=== PATIENT | male | born 1945 | race Asian ===

== ENCOUNTER 2020-05-25 15:11 | Inpatient (IN) | payer OTHER ==
[~2020-05-25] VITALS: Ht 162.6 cm; Wt 49.6 kg
[2020-05-25 15:15] VITALS: Ht 162.6 cm; Wt 49.6 kg
[2020-05-25 16:20] LABS: BASOPHIL % 0.3 % (0-2); PLATELET COUNT 265 x10^3mcL (130-400); RED CELL DISTRIBUTION WIDTH 13.8 % (11.5-14.5)
[2020-05-25 16:25] LABS: CHLORIDE SERUM 92 mmol/L (98-107); CREATININE SERUM 1.2 mg/dL (0.7-1.3); GLUCOSE SERUM 141 mg/dL (74-106); POTASSIUM SERUM 3.6 mmol/L (3.5-5.1); SODIUM SERUM 129 mmol/L (136-145)
[2020-05-25 16:30] LABS: ALKALINE PHOSPHATASE 121 U/L (46-116); ALT/SGPT 52 U/L (16-63); AST/SGOT 81 U/L (15-37); BILIRUBIN TOTAL 0.8 mg/dL (0.20-1.00); C REACTIVE PROTEIN 11.4 mg/dL (<=0.9)
[2020-05-25 16:37] LABS: ALBUMIN 2.7 g/dL (3.4-5.0); LACTIC DEHYDROGENASE (LDH) 794 U/L (100-190)
[2020-05-25 22:24] VITALS: BP 110/71
[2020-05-26 03:41] LABS: UA SPECIFIC GRAVITY 1.025 (1.005-1.035); microscopic required? YES; urine erythrocyte 2+ (NEGATIVE)
[2020-05-26 06:20] LABS: ALKALINE PHOSPHATASE 107 U/L (46-116); ALT/SGPT 26 U/L (16-63); AST/SGOT 42 U/L (15-37); BILIRUBIN TOTAL 0.69 mg/dL (0.20-1.00); C REACTIVE PROTEIN 9.2 mg/dL (<=0.9); CALCIUM 7.9 mg/dL (8.5-10.1); CARBON DIOXIDE 23.1 mmol/L (21-32); CHLORIDE SERUM 102 mmol/L (98-107); GLUCOSE SERUM 103 mg/dL (74-106); MAGNESIUM 2.3 mg/dL (1.8-2.4); PHOSPHOROUS 2.5 mg/dL (2.5-4.9); POTASSIUM SERUM 3.9 mmol/L (3.5-5.1); SODIUM SERUM 136 mmol/L (136-145)
[2020-05-26 06:25] LABS: BASOPHIL % 0.2 % (0-2); PLATELET COUNT 230 x10^3mcL (130-400); RED CELL DISTRIBUTION WIDTH 13.5 % (11.5-14.5)
[2020-05-26 06:45] LABS: TOTAL PROTEIN, SERUM 5.7 g/dL (6.4-8.2)
[2020-05-26 11:11] VITALS: BP 107/65
[2020-05-26 13:15] VITALS: BP 117/65
[2020-05-26 16:06] VITALS: BP 117/63
[2020-05-26 22:27] VITALS: BP 113/75
[2020-05-27] VITALS (7 sets, daily range): BP systolic 44–110; BP diastolic 56–79
[2020-05-27 07:49] LABS: ALKALINE PHOSPHATASE 102 U/L (46-116); ALT/SGPT 24 U/L (16-63); AST/SGOT 39 U/L (15-37); BILIRUBIN DIRECT 0.33 mg/dL (0.0-0.2); BILIRUBIN TOTAL 0.7 mg/dL (0.20-1.00); C REACTIVE PROTEIN 9.2 mg/dL (<=0.9); CALCIUM 8.2 mg/dL (8.5-10.1); CARBON DIOXIDE 22.9 mmol/L (21-32); CHLORIDE SERUM 100 mmol/L (98-107); CREATININE SERUM 0.7 mg/dL (0.7-1.3); GLUCOSE SERUM 107 mg/dL (74-106); MAGNESIUM 2.4 mg/dL (1.8-2.4); PHOSPHOROUS 2.7 mg/dL (2.5-4.9); POTASSIUM SERUM 3.9 mmol/L (3.5-5.1); SODIUM SERUM 134 mmol/L (136-145)
[2020-05-27 07:50] LABS: ALBUMIN 2.1 g/dL (3.4-5.0); TOTAL PROTEIN, SERUM 5.8 g/dL (6.4-8.2)
[2020-05-27 08:30] LABS: BASOPHIL % 0.1 % (0-2); PLATELET COUNT 197 x10^3mcL (130-400); RED CELL DISTRIBUTION WIDTH 12.6 % (11.5-14.5)
[2020-05-28 06:06] VITALS: BP 108/68
[2020-05-28 07:39] LABS: BASOPHIL % 0.2 % (0-2); PLATELET COUNT 283 x10^3mcL (130-400); RED CELL DISTRIBUTION WIDTH 12.6 % (11.5-14.5)
[2020-05-28 08:03] LABS: ALKALINE PHOSPHATASE 93 U/L (46-116); ALT/SGPT 24 U/L (16-63); AST/SGOT 35 U/L (15-37); BILIRUBIN DIRECT 0.18 mg/dL (0.0-0.2); BILIRUBIN TOTAL 0.41 mg/dL (0.20-1.00); CALCIUM 8.1 mg/dL (8.5-10.1); CARBON DIOXIDE 25.1 mmol/L (21-32); CHLORIDE SERUM 104 mmol/L (98-107); CREATININE SERUM 0.8 mg/dL (0.7-1.3); GLUCOSE SERUM 103 mg/dL (74-106); POTASSIUM SERUM 3.9 mmol/L (3.5-5.1); SODIUM SERUM 138 mmol/L (136-145)
[2020-05-28 08:12] LABS: ALBUMIN 1.8 g/dL (3.4-5.0); TOTAL PROTEIN, SERUM 5.3 g/dL (6.4-8.2)
[2020-05-28 09:07] VITALS: BP 111/62
[2020-05-28 11:59] VITALS: BP 118/78
[2020-05-28 15:44] VITALS: BP 105/66
[2020-05-28 20:51] VITALS: BP 105/60
[2020-05-29 05:17] VITALS: BP 120/72
[2020-05-29 07:53] VITALS: BP 109/64
[2020-05-29 08:54] LABS: BILIRUBIN DIRECT 0.29 mg/dL (0.0-0.2); BILIRUBIN TOTAL 0.6 mg/dL (0.20-1.00)
[2020-05-29 08:56] LABS: TOTAL PROTEIN, SERUM 5.4 g/dL (6.4-8.2)
[2020-05-29 12:19] VITALS: BP 94/56
[2020-05-29 15:52] VITALS: BP 108/68
[2020-05-29 21:14] VITALS: BP 116/65
[2020-05-30 05:23] VITALS: BP 111/66
[2020-05-30 07:21] LABS: BASOPHIL % 0.1 % (0-2); PLATELET COUNT 327 x10^3mcL (130-400); RED CELL DISTRIBUTION WIDTH 13.9 % (11.5-14.5)
[2020-05-30 07:42] LABS: BILIRUBIN DIRECT 0.32 mg/dL (0.0-0.2); BILIRUBIN TOTAL 0.7 mg/dL (0.20-1.00)
[2020-05-30 08:01] LABS: TOTAL PROTEIN, SERUM 5.5 g/dL (6.4-8.2)
[2020-05-30 08:43] VITALS: BP 109/70
[2020-05-30 10:18] LABS: CALCIUM 8.2 mg/dL (8.5-10.1); CARBON DIOXIDE 26.6 mmol/L (21-32); CHLORIDE SERUM 102 mmol/L (98-107); CREATININE SERUM 0.9 mg/dL (0.7-1.3); GLUCOSE SERUM 81 mg/dL (74-106); POTASSIUM SERUM 4.4 mmol/L (3.5-5.1); SODIUM SERUM 135 mmol/L (136-145)
[2020-05-30] MEDS ORDERED: VITAMIN C500 M6 PO (10:55)
[2020-05-30] MEDS ORDERED: VENTOLIN H0.09 MG/A1 INH (10:55)
[2020-05-30] MEDS ORDERED: DECADRON4 MG PO (10:55)
[2020-05-30] MEDS ORDERED: ZINC SULFATE220 M2 PO (10:56)
[2020-05-30 11:34] VITALS: BP 109/70
[2020-05-30 12:19] VITALS: BP 124/79
[2020-05-30 15:32] VITALS: BP 129/73
== END 2020-05-30 20:22 | disposition home or self-care (01) | DRG 871 ==
LOC: ED 15:11 → DU 17:50
PROVIDERS: Specialist; ADMIT Internal Medicine; ATTEND Internal Medicine
PROC: XW033E5 Introduction of Remdesivir Anti-infective into Peripheral Vein, Percutaneous Approach, New Technology Group 5 (ICD-10-PCS; principal; 2020-05-26)
DX: A41.89 Other specified sepsis (principal); U07.1 COVID-19; J96.01 Acute respiratory failure with hypoxia; J12.89 Other viral pneumonia; E87.1 Hypo-osmolality and hyponatremia; E44.0 Moderate protein-calorie malnutrition; Z68.1 Body mass index [BMI] 19.9 or less, adult; R65.20 Severe sepsis without septic shock; F17.210 Nicotine dependence, cigarettes, uncomplicated; E11.65 Type 2 diabetes mellitus with hyperglycemia
CPT/HCPCS: 36600; 82962; 83880; 85378; 87804; 97110-GP; 97530-GP; G0378; J0456; J0696; J1100; J1644; J1650; J1815; J3535; J7030; J7050; J7060; U0003